=== PATIENT | female | born 1975 | race Caucasian/White ===

== ENCOUNTER 2021-11-27 15:57 | Emergency (ER) | payer OTHER, SELFPAY ==
[2021-11-27 16:58] VITALS: BP 140/77; PULSE 84; RESP 16; TEMP 36.4; O2SAT 100; BMI 34.4
--- NOTE | 2021-11-27 18:25 | ED_ITS ---
HPI - Eye Problem General Chief complaint: Eye Problems Stated complaint: right eye swollen and blurry vision Time Seen by Provider: 11/27/21 18:19 Source: patient Mode of arrival: ambulatory Limitations: no limitations History of Present Illness HPI Narrative: 46 yo female who uses corrective lenses for both distance and reading presents with reports of 3 days of right periorbital swelling, discomfort and some blurry vision in the right eye with tearing. No pain in the eye. No report of floaters or flashing lights in the right eye. Patient denies any injury or trauma. She denies any itching of the site. Patient reports longstanding history of seasonal allergies and currently is taking Zyrtec and Flonase daily. She tells me she has chronic nasal congestion and sneezing. Related Data Previous Rx's Medication Instructions Recorded amoxicillin 875 mg-potassium 1 tab PO BID #14 tabs 11/27/21 clavulanate 125 mg tablet olopatadine 0.7 % eye drops 1 drp ophthalmic (eye) DAILY PRN 11/27/21 (Pataday Once Daily Relief) itching #5 mL Allergies Allergy/AdvReac Type Severity Reaction Status Date / Time aspirin [ASA] Allergy Unknown SWELLING Unverified 12/03/19 16:27 Review of Systems Review of Systems: Yes all other systems are reviewed and are negative Constitutional: Constitutional: Reports no additional constitutional complaints, Denies body ache(s), Denies chills, Denies fever(s), Denies headache(s) and Denies weakness Eyes: Eyes: Reports no additional eye complaints, Reports blurry vision, Reports eye discharge, Denies floaters, Denies irritation, Denies itchy eyes, Denies eye pain, Reports requires corrective lenses, Denies seeing flashes, Denies photophobia and Denies spots in vision ENT: Reports system reviewed and no additional complaints, except as documented, Denies dizziness, Denies headache(s), Denies nasal congestion, Denies nasal discharge and Denies neck pain Cardiovascular: Cardiovascular: Reports no additional cardiovascular complaints, Denies chest pain, Denies leg edema and Denies dyspnea Respiratory: Respiratory: Reports no additional respiratory complaints, Denies cough and Denies dyspnea Gastrointestinal: Gastrointestinal: Reports no additional gastrointestinal complaints, Denies abdominal pain, Denies diarrhea, Denies nausea and Denies vomiting Genitourinary: Genitourinary: Reports no additional female genitourinary complaints and Denies urinary incontinence Musculoskeletal: Musculoskeletal: Reports no additional musculoskeletal complaints, Denies back pain, Denies arthralgias, Denies joint swelling, Denies neck pain, Denies numbness and Denies tingling Integumentary/Breasts: Skin/Breast: Reports system reviewed and no additional complaints, except as docu and Denies rash Neurologic: Reports system reviewed and no additional complaints, except as documented, Denies Abnormal speech present, Denies dizziness, Denies headache(s), Denies numbness, Denies tingling and Denies weakness Allergic/Immunologic: Allergic/Immunologic: Denies itchy eyes PMFSH Past Medical History Attestation statement: The following information was validated with the patient. Source: old records reviewed and nursing notes reviewed Social History Social History Advance Directives: No Advance Directives Information Provided: No Physical Exam Vital Signs: Vital Signs: Last Vital Signs Temp 97.6 F 11/27/21 16:58 Pulse 84 11/27/21 16:58 Resp 16 11/27/21 16:58 BP 140/77 H 11/27/21 16:58 Pulse Ox 100 11/27/21 16:58 O2 Del Method 11/27/21 16:58 BMI result Body Mass Index 34.4 Const: General: cooperative, healthy appearing, comfortable and no acute distress Orientation/consciousness: patient oriented x3 Limitations: no limitations HEENT: Head: Yes normal to inspection Ears: hearing grossly normal bilaterally and TM's normal bilaterally General nose exam: Normal external nose present and Other nasal findings present (Bilateral nasal turbinate erythema, swelling, bogginess) Face and sinus: Yes normal facial exam and Yes sinus tenderness (Right maxillary TTP) Mouth: Normal oral and palatal mucosa present Throat: Yes posterior oropharynx normal, Yes tonsils normal and Yes uvula midline Eyes: Other: Visual acuity with corrected lenses 20/25 bilaterally No corneal FB or abrasion seen on stain IOP bilaterally 13 General: appearance normal, both eyes and all related structures Visual Smith: normal visual smith by confrontation Alignment and Position: alignment normal Periorbital: periorbital findings abnormal (Just under the eye there is slight swelling/tenderness to periorbital area) Eyelids: Yes eyelids normal Conjunctivae: conjunctivae normal Sclerae: sclerae normal Corneas: corneas normal and fluorescein used Pupils: Equal, round and reactive pupils present EOM: EOMs intact bilaterally Direct Ophthalmoscopy: normal light reflex, no photophobia, no papilledema, fundi nor mal bilaterally, anterior chamber normal and No photophobia Neck: Neck: Yes normal visual inspection Chest: Chest palpation & inspection: normal inspection of the chest Resp: Effort & Inspection: normal respiratory effort Auscultation: clear to auscultation bilaterally Cardio: Rate: regular rate Rhythm: regular rhythm Peripheral pulses: Peripheral pulses 2+ throughout GI: Inspection: Yes normal to inspection Palpation (GI): Soft to palpation and nontender Auscultation: normal bowel sounds Back/Spine/Pelvis: Thoracic/Lumbar Spine: thoracic and lumbar spine normal to inspection Skin: General skin exam: no rashes or lesions noted Neuro: General: patient oriented x3, no focal motor deficits and normal sensation to monofilament Cranial nerves: Yes Equal, round and reactive pupils present Cognition (Neuro): normal cognition Speech: No Abnormal speech present Gait exam (Neuro): Normal gait present Motor exam (neuro): 5/5 motor strength present throughout Extrem: General: Yes normal to inspection MDM - Eye Problem MDM Narrative Medical decision making narrative: 46-year-old female with history of seasonal allergies with daily sneezing and nasal congestion presents with 3-4 days of periorbital swelling, tenderness with tearing from the right eye eye with associated irritation and some blurriness. Visual acuity is normal. Eye exam is normal. Pressures are normal. On exam patient has some slight periorbital swelling and tenderness as well as maxillary right-sided tenderness to palpate over the sinus with nasal turbinate erythema, bogginess and swelling. Patient likely has some sinusitis. She does have some tearing noted from the eye otherwise the eye exam is normal. Patient recommended to continue her allergy medication. Will add course of Augmentin and pataday prn Medical Records Attestation: I reviewed the patient's medical records. Lab Data Attestation: I reviewed the patient's lab results. Discharge Plan Discharge Clinical Impression: Sinusitis Patient Disposition: Home, Self-Care Instructions: Sinusitis (ED) Additional Instructions: Continue zrtyec and nasal spray Cool compresses to the eye/face as needed Prescriptions: New amoxicillin-pot clavulanate 875-125 mg tablet 1 tab PO BID Qty: 14 0RF Pataday Once Daily Relief 0.7 % drops 1 drp ophthalmic (eye) DAILY PRN (Reason: itching) Qty: 5 0RF Referrals: Physician,Unknown J [Physician] - Interventions: ED Discharge Assessment Last Done: 11/27/21 19:27 Discharge Date/Time: 11/27/21 19:28
[2021-11-27] MEDS: Fluorescein Sodium STRIP 1 STRIP EYE-RIGHT (19:08)
[2021-11-27] MEDS: Tetracaine HCl/PF 0.5% Oph Sol 4 ML DROPS 1 DROP EYE-RIGHT (19:08)
== END 2021-11-27 19:28 | disposition home or self-care (01) ==
PROVIDERS: Emergency Provider Internal Medicine; PCP Internal Medicine
DX: J32.0 Chronic maxillary sinusitis (principal); H53.8 Other visual disturbances; Z79.899 Other long term (current) drug therapy
CPT/HCPCS: 99282; 99283